=== PATIENT | female | born 1980 | race African-American/Black ===

== ENCOUNTER 2018-11-27 22:43 | Emergency (ER) | payer OTHER ==
[2018-11-27 22:54] VITALS: BP 124/72; PULSE 71; TEMP 98.3; BMI 32.4
--- NOTE | 2018-11-27 23:59 | PDOC ---
*Physical Exam - Vital Signs Last Vital Signs Temp Pulse Resp BP Pulse Ox 98.3 F 71 17 124/72 100 11/27/18 22:50 11/27/18 22:50 11/27/18 22:50 11/27/18 22:50 11/27/18 22:50 Medical Decision Making - Medical Decision Making 11/27/18 23:59 Patient seen by the advanced practice provider under my direct supervision. Ancillary testing reviewed as necessary. I agree with plan as outlined by the advanced practice provider. *DC/Admit/Observation/Transfer Diagnosis at time of Disposition: Wrist strain - Referrals - Patient Instructions - Post Discharge Activity
[2018-11-28] MEDS ORDERED: diazePAM 5 MG TABLET PO ONE (00:07)
[2018-11-28] MEDS ORDERED: KETOROLAC TROMETHAMINE 60 MG/2 ML VIAL IM ONE (00:07)
[2018-11-28] MEDS ORDERED: KETOROLAC TROMETHAMINE 60 MG/2 ML VIAL ONE (00:22)
[2018-11-28] MEDS ORDERED: diazePAM 5 MG TABLET ONE (00:23)
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
== END 2018-11-28 03:12 | disposition home or self-care (01) ==
LOC: JER 22:43
PROC: 3E0233Z Introduction of Anti-inflammatory into Muscle, Percutaneous Approach (ICD-10-PCS; principal; 2018-11-27)
DX: S66.811A Strain of other specified muscles, fascia and tendons at wrist and hand level, right hand, initial encounter (principal); S16.8XXA Other specified injury of muscle, fascia and tendon at neck level, initial encounter; V73.6XXA Passenger on bus injured in collision with car, pick-up truck or van in traffic accident, initial encounter; Y93.89 Activity, other specified; Y92.414 Local residential or business street as the place of occurrence of the external cause; Y99.8 Other external cause status
CPT/HCPCS: 73090-TC-RT-FY; 73110-TC-RT-FY; 99281-25